=== PATIENT | female | born 1990 ===

== ENCOUNTER 2021-01-05 11:57 | Emergency (ER) | payer OTHER ==
--- NOTE | 2021-01-05 12:52 | Emergency Department Report ---
ED ENT HPI - General Chief complaint: Earache Stated complaint: MUCUS IN EAR Time Seen by Provider: 01/05/21 12:41 Source: patient Mode of arrival: Ambulatory Limitations: No Limitations - History of Present Illness Initial comments: 30-year-old female presents to the emergency department complaining of ear pain. The patient states that she has had problems with her ears for a long time. She recently relocated from [place] and was being treated by an ENT specialist there. She states that he placed her on steroids, but it did not help. She takes Flonase and Claritin-D. She was recently seen at a walk-in clinic and they could not do anything for her. She denies any fevers, drainage, headaches, dizziness, tinnitus, or nausea. She states that it feels like she has thick mucus inside her ears and she is constantly having to blow out thick mucus complaint: ear pain -: Gradual Location: R ear, L ear Severity: severe Improves with: pressure Worsens with: swallowing, eating Context-Epistaxis: history of similar Associated Symptoms: hearing loss, rhinorrhea. denies: fever, cough, sore throat, discharge from ear - Related Data Allergies Allergy/AdvReac Type Severity Reaction Status Date / Time No Known Allergies Allergy Verified 01/05/21 12:01 ED Dental HPI - General Chief complaint: Earache Stated complaint: MUCUS IN EAR Time Seen by Provider: 01/05/21 12:41 Source: patient Mode of arrival: Ambulatory Limitations: No Limitations - History of Present Illness MD complaint: ear pain -: Gradual, month(s) (Several) Severity: severe Quality: aching, dull Consistency: constant Improves with: none Worsens with: swallowing, position Dental Associated Symptons: No: Headache, Sore Throat, Gum Swelling, Fever - Related Data Allergies Allergy/AdvReac Type Severity Reaction Status Date / Time No Known Allergies Allergy Verified 01/05/21 12:01 ED Review of Systems ROS: Stated complaint: MUCUS IN EAR Other details as noted in HPI Comment: All other systems reviewed and negative ENT: ear pain, congestion Respiratory: cough ED Physical Exam - General Limitations: No Limitations General appearance: alert, in no apparent distress, obese - Head Head exam: Present: atraumatic, normocephalic - Eye Eye exam: Present: normal appearance - ENT ENT exam: Present: mucous membranes moist - Expanded ENT Exam Expanded Ear exam: Present: normal external inspection TM/Canal exam: Effusion: Right TM, Left TM - Neck Neck exam: Present: normal inspection - Respiratory Respiratory exam: Present: normal lung sounds bilaterally. Absent: respiratory distress - Cardiovascular Cardiovascular Exam: Present: regular rate, normal rhythm. Absent: systolic murmur, diastolic murmur, rubs, gallop - GI/Abdominal GI/Abdominal exam: Present: soft, normal bowel sounds - Extremities Exam Extremities exam: Present: normal inspection - Back Exam Back exam: Present: normal inspection - Neurological Exam Neurological exam: Present: alert, oriented X3 - Psychiatric Psychiatric exam: Present: normal affect, normal mood - Skin Skin exam: Present: warm, dry, intact, normal color. Absent: rash ED Course Vital Signs 01/05/21 01/05/21 11:59 13:38 Temperature 98.3 F Pulse Rate 73 68 Respiratory 18 14 Rate Blood Pressure 140/88 138/82 [Left] O2 Sat by Pulse 100 100 Oximetry ED Medical Decision Making - Medical Decision Making 30-year-old female with a history of eustachian tube dysfunction presents to the emergency department with acute on chronic ear pain. She denies fevers and there is no evidence of any infection. She has an ENT appointment scheduled in February. I did offer her more steroids, but she declined them at this point. I have given her strong return precautions for any fevers or new or worsening symptoms. Critical care attestation.: If time is entered above; I have spent that time in minutes in the direct care of this critically ill patient, excluding procedure time. ED Disposition Clinical Impression: Chronic serous otitis media of both ears Disposition: HOME / SELF CARE / HOMELESS Is pt being admited?: No Does the pt Need Aspirin: No Condition: Stable Referrals: MANINDER CAREY MD [Referring] - 3-5 Days
[2021-01-05 13:40] VITALS: BP 138/82
== END 2021-01-05 13:38 | disposition home or self-care (01) ==
LOC: ED 11:57
DX: H65.23 Chronic serous otitis media, bilateral (principal)
CPT/HCPCS: 99282